=== PATIENT | female | born 1950 | race Caucasian/White ===

== ENCOUNTER 2022-05-31 06:44 | Inpatient (IN) ==
--- NOTE | 2022-05-21 08:14 | Anesthesiology Consultation ---
Date of Service May 21, 2022 Assessment & Plan (1) Encounter for pre-operative examination: Chart Review Chart Review: Acceptable Risk for Surgery and Patient NOT seen in Pre Admission Testing -COVID screening: Per PAT nursing assessment on 05/21/22. No known COVID-19 positive contacts or current COVID-19 related symptoms. Travel screen negative. Patient vaccinated for Covid. At surgeon discretion if preop Covid testing being done. History Surgery Operation Date: 05/31/22 08:50 Proposed Procedures p Bilateral Breast Mastectomy with Bilateral Sentinal Lymph Node Biopsy - Israel Bojorquez MD, FACS Height/Weight Height: 5 ft 2 in Weight: 90.718 kg Allergies Allergy/AdvReac Type Severity Reaction Status Date / Time Penicillins Allergy Hives Verified 05/21/22 07:35 Medications Home Medications Medication Instructions Recorded Confirmed Last Taken calcium carb,cit ER 600 mg-vit D3 2 tab PO QPM 03/17/18 05/21/22 10/24/18 21:00 12.5 mcg (500 unit) tablet,ext.rel (Citracal-D3 Slow Release) docusate sodium 100 mg capsule 300 mg PO HS 03/17/18 05/21/22 10/24/18 21:00 (Colace) multivitamin 1 tab PO QPM 03/17/18 05/21/22 10/24/18 21:00 aspirin 81 mg tablet,delayed 81 mg PO HS 10/11/18 05/21/22 10/23/18 21:00 release (Ecotrin Low Strength) cetirizine 10 mg tablet (Zyrtec) 10 mg PO HS 10/11/18 05/21/22 10/24/18 21:00 cholecalciferol (vitamin D3) 50 2,000 unit PO QPM 10/11/18 05/21/22 10/24/18 21:00 mcg (2,000 unit) capsule (Vitamin D3) fluticasone propionate 50 1 spray intranasal DAILY PRN 03/19/19 05/21/22 Unknown mcg/actuation nasal Congestion spray,suspension (Flonase Allergy Relief) omega 1-cnh-njj-fish oil 300 1 cap PO HS 05/04/22 05/21/22 Unknown mg-1,000 mg capsule,delayed release (Fish Oil) allopurinol 100 mg tablet 100 mg PO HS 05/21/22 05/21/22 Unknown amitriptyline 50 mg tablet 50 mg PO HS 05/21/22 05/21/22 Unknown atenolol 50 mg tablet 50 mg PO HS 05/21/22 05/21/22 Unknown hydrochlorothiazide 25 mg tablet 25 mg PO HS 05/21/22 05/21/22 Unknown Past Medical History Medical History (Updated 05/21/22 @ 08:09 by Latia Chambers PA-C) Borderline high cholesterol Breast cancer, right Stage 1 cancer Fibromyalgia Gout History of COVID-24 Sep 2021 > not hospitalized > very mild Hypertension Osteoarthritis Seasonal allergies Past Family History Family History Sister Breast cancer Father Myocardial infarction Grandfather (Maternal) Prostate cancer Uncle Prostate cancer Mother Hypertension Brother Cancer of kidney Other No family history of adverse response to anesthesia Denies family history of Ovarian cancer Colorectal cancer Past Surgical History Surgical History H/O nasal polypectomy History of total right knee replacement (TKR) History of vocal cord polypectomy 40 yrs ago Hx of section x2 Hx of cholecystectomy Hx of colonoscopy Hx of tooth extraction Social History Smoking Status: Never smoker Do You Dip or Chew Tobacco: No Hx Alcohol Use: Yes Alcohol type: beer and wine alcohol intake frequency: a few times a month Hx Substance Use: No substance use type: does not use Lab Results Anesthesia Preop Results Results Anesthesia Widget: WBC 8.58 K/ul (4.8-10.8) 05/13/22 Hgb 14.0 g/dl (12.0-16.0) 05/13/22 Hct 42.2 % (34.1-44.9) 05/13/22 Plt 318 K/uL (130-400) 05/13/22 Na 140 mmol/L (136-145) 05/13/22 K 3.8 mmol/L (3.5-5.1) 05/13/22 Cl 103 mmol/L (98-107) 05/13/22 CO2 31 mmol/L (21-32) 05/13/22 BUN 21 mg/dl (6-23) 05/13/22 Creat 0.81 mg/dl (0.6-1.2) 05/13/22 Glucose Level 91 mg/dl (70-99(Fasting)) 05/13/22 HA1c 5.8 % (4.5-5.6) H 05/13/22 Testing Electrocardiogram Date: 04/23/22 Findings: + NSR @ (66bpm ) and + no change from (Mar 21, 2018 per cardio ) Low voltage QRS
[~2022-05-31 06:44] MED LIST: CLINDA 900 MG **Premixed Bag IV SCH; LR 15ML/HR IV SCH
[2022-05-31] MEDS ORDERED: MIDAZOLAM HCL 1 MG/ML 2ML VIAL ONE (08:52)
[2022-05-31] MEDS ORDERED: DEXAMETHASONE SOD INJ 4 MG/ML VIAL ONE (08:52)
[2022-05-31] MEDS ORDERED: LIDOCAINE 2% MPF LOCAL 5 ML VIAL INFIL ONE (08:52)
[2022-05-31] MEDS ORDERED: fentaNYL citrate 100 MCG/2 ML VIAL ONE ×2 (08:52→12:22)
[2022-05-31] MEDS ORDERED: ONDANSETRON INJ 2 MG/ML 2 ML VIAL ONE (08:52)
[2022-05-31] MEDS ORDERED: ROCURONIUM BROMIDE 10 MG/ML 5 ML VIAL IV ONE ×4 (08:52→12:23)
[2022-05-31] MEDS ORDERED: PROPOFOL IV EMULSION 10 MG/ML 20 ML VIAL IV ONE ×2 (08:52→12:23)
[2022-05-31] MEDS ORDERED: GLYCOPYRROLATE 0.2 MG/ML VIAL ONE (08:52)
[2022-05-31] MEDS ORDERED: NEOSTIGMINE METHYLSULFATE 1 MG/ML 10ML VIAL ONE (08:52)
--- NOTE | 2022-05-31 09:25 | Nuclear Medicine Report ---
LYMPHOSCINTIGRAPHY, RIGHT BREAST CLINICAL HISTORY: Right breast cancer. PROCEDURE: Using standard sterile technique, 4 intradermal and one deep injection of 0.489 mCi of Lym phoseek was placed in the right periareolar breast. The patient tolerated the procedure well. There w ere no immediate complications. The patient was subsequently transported to the surgical suite. No im aging was obtained at the referring physician's request. IMPRESSION: Injection of 0.489 mCi of Lymphoseek in the right periareolar breast. ACT 112: Negative or not required by law. Electronically signed by: North Fuentes M.D. 05/31/2022 9:24 AM
--- NOTE | 2022-05-31 09:26 | Nuclear Medicine Report ---
LYMPHOSCINTIGRAPHY, LEFT BREAST CLINICAL HISTORY: Right breast cancer. PROCEDURE: Using standard sterile technique, 4 intradermal and one deep injection of 0.541 mCi of Lym phoseek was placed in the left periareolar breast. The patient tolerated the procedure well. There we re no immediate complications. The patient was subsequently transported to the surgical suite. No obey ging was obtained at the referring physician's request. IMPRESSION: Injection of 0.541 mCi of Lymphoseek in the left breast. ACT 112: Negative or not required by law. Electronically signed by: North Fuentes M.D. 05/31/2022 9:24 AM
[2022-05-31] MEDS ORDERED: ONDANSETRON INJ 2 MG/ML 2 ML VIAL IV PRN ×2 (09:37→15:07)
[2022-05-31] MEDS ORDERED: LABETALOL HCL IV 5 MG/ML 20ML IV PRN (09:37)
[2022-05-31] MEDS ORDERED: PROMETHAZINE HCL 6.25 MG in SODIUM CHLORIDE 0.9% 50 ML IV PRN (09:37)
[2022-05-31] MEDS ORDERED: KETOROLAC 30 MG/ML VIAL IV PRN (09:37)
[2022-05-31] MEDS ORDERED: ATROPINE SULFATE 0.1 MG/ML 10ML SYR IV PRN (09:37)
[2022-05-31] MEDS ORDERED: fentaNYL citrate 100 MCG/2 ML VIAL IV PRN (09:37)
[2022-05-31] MEDS ORDERED: BUPIVACAINE 0.5 % 5 MG/1 ML MPF 30ML VIAL ONE ×2 (10:02→11:50)
[2022-05-31] MEDS ORDERED: METHYLENE BLUE 0.5% 10 ML VIAL ONE (10:02)
--- NOTE | 2022-05-31 10:10 | History & Physical Bridge Note ---
Date of Service May 31, 2022 History & Physical Bridge Note I have examined the patient, reviewed the History & Physical and in the interval since the performance of the History & Physical I have noted the following changes of clinical significance: no changes noted
--- NOTE | 2022-05-31 13:00 | Post Operative Brief Note ---
PG Immediate Post Op with CF Date of Surgery May 31, 2022 Pre & Post Diagnosis Operation Date: 05/31/22 09:50 Pre-Op Diagnosis: Right Breast Cancer, BRCA2 Gene Mutation Positive Post-Op Diagnosis: Right Breast Cancer, BRCA2 Gene Mutation Positive I identified the patient and participated in the time-out.: Yes Procedure Operation Date: 05/31/22 09:50 Actual Procedures p Bilateral Breast Mastectomy with Bilateral [place] Lymph Node Biopsy(Bilateral) - Israel Bojorquez MD, FACS Surgeon Israel Bojorquez MD, FACS Chief Drafter Nika Mccoy Estimated Blood Loss 20 Findings Consistent with Post-Op Diagnosis Bilateral sentinel lymph nodes and breast tissue Specimens Specimen Description: A. Left Arg[place] Lymph Nodes B. Left Breast, Silk Suture Lateral C. Right [place] Lymph Nodes D. Right Breast, Silk Suture Lateral Drains Ok-Salazar Drain (15fr x2)
[2022-05-31] MEDS ORDERED: ACETAMINOPHEN 1,000 MG/100 ML VIAL IV ONE (13:01)
--- NOTE | 2022-05-31 13:42 | Hospitalist Consultation ---
Date of Consultation May 31, 2022 Assessment & Plan (1) BRCA2 gene mutation positive: Bilateral mastectomy, BRCA2+ R nodules - s/p mastectomy due to family history of BRCA2 gene and 2 nodules in the right breast which tested positive for stage I breast cancer. Surgical management, pain control, DVT prophylaxis per primary team Doing well, drains in place with sanguinous output Gout Continue allopurinol 100 mg p.o. nightly Fibromyalgia Continue amitriptyline 50 mg p.o. nightly Acute pain control per primary team. Reasonable for multimodal pain control starting with Tylenol, continuing amitriptyline above, and breakthrough oxycodone every 4 hours while awake Hypertension Continue atenolol 50 mg p.o. nightly May resume hydrochlorothiazide 25 mg p.o. nightly tonight, or tomorrow if low normal blood pressure Continue low-sodium diet Pain currently well controlled with Tylenol, oxycodone as needed. Continue DVT prophylaxis: Per primary team Disposition: Medical surgical Diet: Tolerating regular diet at time of assessment (2) FHx: factor V Leiden mutation: (3) HTN (hypertension): (4) Hypertension: (5) Gout: (6) Breast cancer, right: History of Present Illness Attending Physician: Israel Bojorquez MD, [facility] History of Present Illness Lexy De Jesus 71yo female with past medical history of BRCA2 gene mutation negative breast cancer, fibromyalgia, gout, hypertension, osteoarthritis who presented for scheduled bilateral breast mastectomy with sentinel lymph node biopsy with Dr. Bojorquez on 05/31/2022. Estimated blood loss 20 cc, no acute concerns per signout we have been consulted for postoperative management of medical comorbidities. Preoperatively with hemoglobin 14.0, white blood cell 8.5, sodium normal, potassium normal, creatinine is less than 1 at baseline and 0.81 preoperatively. Lexy is seen at the bedside postoperatively. She is seen with her daughter present. She reports that she feels well, has some pain at her surgical site in her chest otherwise does not have pain. She is well oriented and answers questions appropriately. She reports she has hypertension controlled with atenolol, HCTZ although notes it was her idea to take the HCTZ for weight loss many years ago but now does continue to use it for blood pressure. Has not taken this in the week preceding her surgery. Has taken the atenolol daily including today. Has a history of fibromyalgia for which she takes amitriptyline which works well for her. She had a mastectomy due to family history of BRCA2 gene and 2 nodules in the right breast which tested positive for stage I breast cancer. She elected to have bilateral mastectomy. 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 She denies history of CA, strokes, stents, and heart failure. She takes aspirin for primary prophylaxis which she last took 1 week ago. She is hungry and would like a lozenge due to a slightly scratchy throat, otherwise no questions/concerns at bedside. Allergies Allergy/AdvReac Type Severity Reaction Status Date / Time Penicillins Allergy Hives Verified 05/31/22 06:34 Home Medications Medication Instructions Recorded Confirmed Type calcium carb,cit ER 600 mg-vit D3 2 tab PO QPM 03/17/18 05/31/22 History 12.5 mcg (500 unit) tablet,ext.rel (Citracal-D3 Slow Release) docusate sodium 100 mg capsule 300 mg PO HS 03/17/18 05/31/22 History (Colace) multivitamin 1 tab PO QPM 03/17/18 05/31/22 History aspirin 81 mg tablet,delayed 81 mg PO HS 10/11/18 05/31/22 History release (Ecotrin Low Strength) cetirizine 10 mg tablet (Zyrtec) 10 mg PO HS 10/11/18 05/31/22 History cholecalciferol (vitamin D3) 50 2,000 unit PO QPM 10/11/18 05/31/22 History mcg (2,000 unit) capsule (Vitamin D3) fluticasone propionate 50 1 spray intranasal DAILY PRN 03/19/19 05/31/22 History mcg/actuation nasal Congestion spray,suspension (Flonase Allergy Relief) omega 9-kuv-mtm-fish oil 300 1 cap PO HS 05/04/22 05/31/22 History mg-1,000 mg capsule,delayed release (Fish Oil) allopurinol 100 mg tablet 100 mg PO HS 05/21/22 05/31/22 History amitriptyline 50 mg tablet 50 mg PO HS 05/21/22 05/31/22 History atenolol 50 mg tablet 50 mg PO HS 05/21/22 05/31/22 History hydrochlorothiazide 25 mg tablet 25 mg PO HS 05/21/22 05/31/22 History Patient History Medical History Borderline high cholesterol Breast cancer, right Stage 1 cancer Fibromyalgia Gout History of COVID-24 Sep 2021 > not hospitalized > very mild Hypertension Osteoarthritis Seasonal allergies Surgical History H/O nasal polypectomy History of total right knee replacement (TKR) History of vocal cord polypectomy 40 yrs ago Hx of section x2 Hx of cholecystectomy Hx of colonoscopy Hx of tooth extraction Family History Sister Breast cancer Father Myocardial infarction Grandfather (Maternal) Prostate cancer Uncle Prostate cancer Mother Hypertension Brother Cancer of kidney Other No family history of adverse response to anesthesia Denies family history of Ovarian cancer Colorectal cancer Social History Smoking Status: Never smoker Second Hand Exposure: No (work environment); Do You Dip or Chew Tobacco: No; Tobacco Cessation Education Requested by Patient: No Hx Alcohol Use: Yes Alcohol type: beer and wine Alcohol Intake Frequency: 2-4 x/Month Hx Substance Use: No Preferred Language: Czech Communication Ability: Effective Hearing Ability: Use of Hearing Aid 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 Beliefs That Will Affect Care: None marital status: Current Living Situation: Spouse current occupational status: 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 How many Children do You have: 2 Other Information That Helps Us Care for You: No Feels Safe at Home: Yes Safety Concerns: Feels Safe At This Time Childhood Exposure to Second-Hand Smoke: Yes caffeine: Yes during the past year weight has: increased > 10 lbs Dental Care, Regularly: Yes Physical Activity Frequency: Daily Seatbelt Use: always Sunscreen Use: Yes Assistive Devices: Contacts, Denture - Upper, Denture - Lower and Glasses Assistive Devices Comment: metal implants on bottom of mouth for upcoming bottom denture placement Review of Systems Review of Systems: All systems reviewed & are unremarkable except as noted in HPI & below Physical Exam Physical Exam: General: A&Ox3. NAD. Cooperative. HEENT: Atraumatic, normocephalic. Vision/hearing grossly intact Chest: Postsurgical dressings intact C/D/I. BAM drain right and BAM drain left both intact draining sanguinous material. Pulm: CTAB A&P. -wheezes, -rales, -rhonchi. Symmetrical chest rise. No increased work of breathing. No respiratory distress. Cardiac: RRR, -mrg. Radial pulses intact and symmetrical. Abdominal: Nontender, nondistended, soft. BS present. Extremities: Warm, dry, no edema. Sensation soft touch in hands and feet intact without asymmetry. Hyperbaric Technician strength intact and able to wiggle toes bilaterally Results & Data Results & Data ([facility]) Vital Signs (Past 12 Hours) Vital Signs Temp Pulse Pulse Resp BP Pulse Ox O2 Del Method 05/31/22 13:17 36.4 C L 80 18 155/92 H 97 Oxymask 05/31/22 06:58 36.9 C 72 18 150/84 H 96 Room Air O2 Flow Rate 05/31/22 13:17 5 05/31/22 06:58 PG Care Time/CCT Total # of Minutes Spent Total Time Spent with Patient: Total time spent is greater than 50% in coordination of care (as documented) at patient's floor/unit and/or counseling patient: Coding Level of Care Code INP/OBS CONSULT LVL 3, 45 MIN Diagnoses BRCA2 gene mutation positive Z15.01; Z15.09 FHx: factor V Leiden mutation Z83.2 HTN (hypertension) I10 Hypertension I10 Gout M10.9 Breast cancer, right C50.911
--- NOTE | 2022-05-31 13:56 | Anesthesiology Progress Note ---
Date of Service May 31, 2022 Anesthesia Post Procedure Vital Signs Vital Signs: Temp Pulse Pulse Resp BP Pulse Ox O2 Del Method 05/31/22 13:35 62 7 L 124/85 99 Oxymask 05/31/22 13:45 60 13 153/84 H 97 Oxymask 05/31/22 13:25 58 L 9 L 127/74 98 Oxymask 05/31/22 13:17 36.4 C L 80 18 155/92 H 97 Oxymask 05/31/22 06:58 36.9 C 72 18 150/84 H 96 Room Air O2 Flow Rate 05/31/22 13:35 3 05/31/22 13:45 3 05/31/22 13:25 4 05/31/22 13:17 5 05/31/22 06:58 Transfer of Care Handoff Completed per policy Notes Mental Status: alert / awake / arousable Patient Amnestic to Procedure: Yes Nausea / Vomiting: adequately controlled Pain: adequately controlled Airway Patency, RR, SpO2: stable & adequate BP & HR: stable & adequate Hydration State: stable & adequate Anesthetic Complications: no major complications apparent
[2022-05-31] MEDS ORDERED: KETAMINE 50 MG/5 ML SYRINGE ONE (14:35)
[2022-05-31] MEDS ORDERED: HYDROmorphone INJ 0.5 MG/0.5 ML SYR IV PRN (15:07)
[2022-05-31] MEDS ORDERED: ACETAMINOPHEN 325 MG TAB PO PRN (15:07)
[2022-05-31] MEDS ORDERED: LACTATED RINGER'S 1,000 ML IV SCH (15:07)
[2022-05-31] MEDS ORDERED: oxyCODONE HCL IR 5 MG TAB (IMMEDIATE RELEASE) PO PRN (15:07)
--- NOTE | 2022-05-31 19:19 | Operative Report (OR) ---
DATE OF OPERATION: 05/31/2022. NAME OF OPERATION: Bilateral mastectomy with bilateral sentinel lymph node biopsy. PREOPERATIVE DIAGNOSIS: Right breast cancer. POSTOPERATIVE DIAGNOSIS: Right breast cancer. STAFF SURGEON:. Dr. Bojorquez. FIELD AUDITOR: Halie Mccoy. ANESTHESIA: General. DESCRIPTION OF PROCEDURE: The patient was brought in the operating room and placed on the operating table in supine position. Her bilateral chest were prepped and draped in the usual fashion as well a s her axilla. Her arms were extended onto an arm board. The breast cancer was in the right breast. The left breast was approached first. We used 0.5% plain Marcaine for all incisions. Incision was made in the left axilla using the Neoprobe identifying sentinel lymph nodes, which were sent for rout ine pathology. The deep tissue was reapproximated using 2-0 plain suture, then the skin reapproximat ed using 4-0 nylon suture. An elliptical incision was made around the left breast nipple areolar com plex from medial to lateral and then the breast tissue was dissected away from the subcutaneous tissu e superior and inferior constructing a chest wall skin flaps. Breast tissue was taken off the pectora lis major muscle and then the breast was marked with a long silk suture lateral. The 15 round Jackso n-Salazar drain placed into the wound, secured at the skin using 3-0 nylon suture. The subcutaneous ti ssue was reapproximated using 3-0 Vicryl suture. Then, the skin reapproximated using subcuticular 4- 0 Monocryl with Steri-Strips. The right side was approached and the exact same operation performed w ith sentinel lymph node biopsy first and then the right mastectomy second with identical closure. Dr mcnair were applied and Johnnie wrap applied, and the patient was transferred to recovery room in stable condition. The patient tolerated the procedure well. My assistant professor of criminal justice helped me with prepping and drap ing the mastectomy, sentinel lymph node biopsy and closure of the wounds. Job ID: [id number]
[2022-05-31] MEDS: DOCUSATE SODIUM/SENNA 50/8.6MG TAB PO SCH (20:57)
[2022-05-31] MEDS ORDERED: hydroCHLOROthiazide 25 MG TAB PO SCH (21:00)
[2022-05-31] MEDS ORDERED: AMITRIPTYLINE HCL 50 MG TAB PO SCH (21:00)
[2022-05-31] MEDS ORDERED: allopurinoL 100 MG TAB PO SCH (21:00)
[2022-05-31] MEDS ORDERED: ATENOLOL 50 MG TABLET PO SCH (21:00)
[2022-05-31] MEDS: oxyCODONE HCL IR 5 MG TAB (IMMEDIATE RELEASE) PO PRN (22:56)
[2022-06-01] MEDS: oxyCODONE HCL IR 5 MG TAB (IMMEDIATE RELEASE) PO PRN (05:06)
[2022-06-01] MEDS ORDERED: COUGH DROP (SUGAR FREE) LOZ 24 LOZ/1 BOX BUCCAL ONE (06:25)
--- NOTE | 2022-06-01 06:48 | Discharge Summary (DS) ---
DATE OF ADMISSION: 05/31/2022. DATE OF DISCHARGE: 06/01/2022. NAME OF OPERATION: Bilateral mastectomy with bilateral sentinel lymph node biopsy. PREOPERATIVE DIAGNOSIS: Right breast cancer. POSTOPERATIVE DIAGNOSIS: Right breast cancer. STAFF SURGEON: Israel Bojorquez MD. HISTORY OF PRESENT ILLNESS: The patient is a 71-year-old female with biopsy-proven right breast canc er, which is breast cancer associated with a BRCA2 gene. The patient was brought into the hospital f or bilateral mastectomy. She was taken to the operating room on 05/31/2022, where she underwent bila teral mastectomy with bilateral sentinel lymph node biopsy, which she tolerated very well. She has d one well overnight. [place] stable for discharge home today to be followed in the surgical clinic. Job ID: [id number]
[2022-06-01] MEDS: DOCUSATE SODIUM/SENNA 50/8.6MG TAB PO SCH (07:37)
== END 2022-06-01 10:31 | disposition home or self-care (01) | DRG 581 ==
LOC: ASU 06:44 → 3N 13:40

== ENCOUNTER 2023-07-29 07:53 | Observation (INO) ==
--- NOTE | 2023-07-13 13:33 | PAT Medication Instructions ---
Medication Instructions Date of Service July 13, 2023 Home Medications Medication Instructions Recorded ibuprofen 600 mg tablet 600 mg PO TID PRN pain #20 tabs 08/23/22 allopurinol 100 mg tablet 200 mg (2 x 100 mg) PO HS #180 tabs 02/21/23 amitriptyline 50 mg tablet 50 mg PO HS #90 tabs 02/21/23 atenolol 50 mg tablet 50 mg PO HS #90 tabs 02/21/23 hydrochlorothiazide 25 mg tablet 25 mg PO QAM #90 tabs 02/21/23 benzonatate 100 mg capsule 100 mg PO TID PRN cough #30 caps 05/24/23 docusate sodium 100 mg capsule (Colace) 300 mg PO HS multivitamin 1 tab PO QPM aspirin 81 mg tablet,delayed release (Ecotrin Low Strength) 81 mg PO QAM cetirizine 10 mg tablet (Zyrtec) 10 mg PO QAM cholecalciferol (vitamin D3) 50 mcg (2,000 unit) capsule (Vitamin D3) 2,000 unit PO QPM fluticasone propionate 50 mcg/actuation nasal spray,suspension (Flonase Allergy Relief) 1 spray intranasal DAILY PRN omega 3-rko-ziq-fish oil 300 mg-1,000 mg capsule,delayed release (Fish Oil) 1 cap PO HS calcium carbonate 600 mg calcium (1,500 mg) tablet (Calcium) 600 mg PO BID vit C 250 mg-vit E 90 mg-zinc 40 mg-copper 1 rd-wzeurz-xxyeln capsule (PreserVision AREDS-2) 1 tab PO BID ibuprofen 600 mg tablet 600 mg PO TID PRN anastrozole [Arimidex] 1 dose PO QAM allopurinol 100 mg tablet 200 mg (2 x 100 mg) PO HS amitriptyline 50 mg tablet 50 mg PO HS atenolol 50 mg tablet 50 mg PO HS hydrochlorothiazide 25 mg tablet 25 mg PO QAM benzonatate 100 mg capsule 100 mg PO TID PRN anastrozole 1 mg tablet (Arimidex) 1 mg PO QAM Continue as directed fluticasone propionate 50 mcg/actuation nasal spray,suspension (Flonase Allergy Relief) 1 spray intranasal DAILY PRN(if needed) ASK your surgeon for instructions ibuprofen 600 mg tablet 600 mg PO TID PRN ASK your prescriber and surgeon aspirin 81 mg tablet,delayed release (Ecotrin Low Strength) 81 mg PO QAM anastrozole 1 mg tablet (Arimidex) 1 mg PO QAM STOP taking 2 weeks before surgery (or as soon as possible if surgery is within 2 weeks) omega 2-fvu-vnx-fish oil 300 mg-1,000 mg capsule,delayed release (Fish Oil) 1 cap PO HS vit C 250 mg-vit E 90 mg-zinc 40 mg-copper 1 wl-wwsavh-fcztdy capsule (PreserVision AREDS-2) 1 tab PO BID DO NOT take the morning of surgery cetirizine 10 mg tablet (Zyrtec) 10 mg PO QAM calcium carbonate 600 mg calcium (1,500 mg) tablet (Calcium) 600 mg PO BID hydrochlorothiazide 25 mg tablet 25 mg PO QAM benzonatate 100 mg capsule 100 mg PO TID PRN Take morning of surgery With a small sip of water, OTHERWISE NOTHING TO EAT OR DRINK AFTER MIDNIGHT: Take evening before surgery docusate sodium 100 mg capsule (Colace) 300 mg PO HS multivitamin 1 tab PO QPM cholecalciferol (vitamin D3) 50 mcg (2,000 unit) capsule (Vitamin D3) 2,000 unit PO QPM calcium carbonate 600 mg calcium (1,500 mg) tablet (Calcium) 600 mg PO BID allopurinol 100 mg tablet 200 mg (2 x 100 mg) PO HS amitriptyline 50 mg tablet 50 mg PO HS atenolol 50 mg tablet 50 mg PO HS benzonatate 100 mg capsule 100 mg PO TID PRN(if needed) Other Notes If you have any questions please call us at [phone] or [phone] or [phone] or [phone]
--- NOTE | 2023-07-20 13:25 | Anesthesiology Consultation ---
Date of Service July 20, 2023 Assessment & Plan (1) Encounter for pre-operative examination: - Infectious disease screening: Per assessment on 07/20/23: No known infectious disease contacts or current infectious disease symptoms. Patient was Covid positive 05/09/23 (Home test)- cough, congestion, laryngitis > symptoms resolved except residual, lingering mild laryngitis. DOS 07/29/23. Pt can proceed as scheduled without additional preop Covid testing or additional Covid contact precautions per protocol. - Outpatient joint assessment: Pt currently scheduled for inpatient pathway. If surgeon requests review for outpatient joint pathway, patient is an acceptable candidate for outpatient joint program from anesthesia standpoint pending surgeon's office assessment that patient is motivated, has good support and completes [facility] Day [facility] Program preop requirements. Chart Review Chart Review: Acceptable Risk for Surgery and Patient seen in Pre Admission Testing Teaching & Discussion Pre-Anesthesia Teaching/Discussion Notes: Instructed NPO after midnight before surgery,except medications with 15 cc of water. Medication instructions provided according to the PAT guidelines. History Surgery Operation Date: 07/29/23 08:00 Proposed Procedures p Left Total Knee Arthroplasty - Reece Kent DO Height/Weight Height: 5 ft 2 in Weight: 83.5 kg Allergies Allergy/AdvReac Type Severity Reaction Status Date / Time Penicillins Allergy Unknown Hives Verified 07/08/23 13:22 Medications Home Medications Medication Instructions Recorded Confirmed Last Taken docusate sodium 100 mg capsule 300 mg PO HS 03/17/18 07/08/23 08/22/22 20:30 (Colace) multivitamin 1 tab PO QPM 03/17/18 07/08/23 08/22/22 20:30 aspirin 81 mg tablet,delayed 81 mg PO QAM 10/11/18 07/08/23 08/20/22 20:00 release (Ecotrin Low Strength) cetirizine 10 mg tablet (Zyrtec) 10 mg PO QAM 10/11/18 07/08/23 08/22/22 08:00 cholecalciferol (vitamin D3) 50 2,000 unit PO QPM 10/11/18 07/08/23 08/22/22 20:30 mcg (2,000 unit) capsule (Vitamin D3) fluticasone propionate 50 1 spray intranasal DAILY PRN 03/19/19 07/08/23 08/22/22 20:30 mcg/actuation nasal Congestion spray,suspension (Flonase Allergy Relief) omega 3-hjt-blj-fish oil 300 1 cap PO HS 05/04/22 07/08/23 08/11/22 20:00 mg-1,000 mg capsule,delayed release (Fish Oil) calcium carbonate 600 mg calcium 600 mg PO BID 08/12/22 07/08/23 08/22/22 20:30 (1,500 mg) tablet (Calcium) vit C 250 mg-vit E 90 mg-zinc 40 1 tab PO BID 08/12/22 07/08/23 08/22/22 20:30 mg-copper 1 sr-howrmp-uqsgyn capsule (PreserVision AREDS-2) ibuprofen 600 mg tablet 600 mg PO TID PRN pain #20 tabs 08/23/22 07/08/23 Unknown anastrozole [Arimidex] 1 dose PO QAM 09/06/22 07/08/23 Unknown allopurinol 100 mg tablet 200 mg (2 x 100 mg) PO HS #180 tabs 02/21/23 07/08/23 Unknown amitriptyline 50 mg tablet 50 mg PO HS #90 tabs 02/21/23 07/08/23 Unknown atenolol 50 mg tablet 50 mg PO HS #90 tabs 02/21/23 07/08/23 Unknown hydrochlorothiazide 25 mg tablet 25 mg PO QAM #90 tabs 02/21/23 07/08/23 Unknown benzonatate 100 mg capsule 100 mg PO TID PRN cough #30 caps 05/24/23 06/21/23 Unknown anastrozole 1 mg tablet (Arimidex) 1 mg PO QAM 07/08/23 07/08/23 Unknown Past Medical History Medical History Borderline high cholesterol Breast cancer, right Stage 1 cancer s/p mastectomy (05/2022) Fibromyalgia Gout Remote History of COVID-19 09/2021- "very mild" 05/09/23 (Home test)- cough, congestion, laryngitis > reports symptoms resolved except lingering, mild laryngitis Hypertension Osteoarthritis Seasonal allergies Exercise / Class Metabolic Activity II 4-5 Yardwork/Stairs/Walk up hill Past Family History Family History Sister Breast cancer Father Myocardial infarction Grandfather (Maternal) Prostate cancer Uncle Prostate cancer Mother Hypertension Brother Cancer of kidney Other Family history of diabetes mellitus in brother No family history of adverse response to anesthesia Denies family history of Ovarian cancer Colorectal cancer Past Surgical History Surgical History H/O bilateral mastectomy Bilateral mastectomy with bilateral sentinel lymph node biopsy (05/31/22): Grade view 1, Glidescope#4, ETT 7.0 (elective glidescope x1 attempt, atraumatic) at [facility] Denies limb restriction. H/O bilateral oophorectomy Robotic Assisted Laparoscopic bilateral salpingo-oopheretomy, and Cystoscopy (08/23/22): Grade view 1, MAC#3, ETT 7.5 at [facility] H/O nasal polypectomy History of total right knee replacement (TKR) History of vocal cord polypectomy 40 years ago Hx of section x2 Hx of cholecystectomy Hx of colonoscopy Hx of tooth extraction Past Anesthesia History No Hx of Anesthesia Complications and No Family Hx of Anesthesia Complications History of PONV No Hx of PONV and No Hx of Motion Sickness Social History Smoking Status: Never smoker Do You Dip or Chew Tobacco: No Hx Alcohol Use: Yes Alcohol type: beer and wine alcohol intake frequency: holidays/special occasions only Hx Substance Use: No substance use type: does not use Review of Systems Patient denies chest pain, shortness of breath, dyspnea on exertion, fever, chills, cough, wheezing, palpitations. Physical Exam Vital Signs BP 113/73 P 63 TEMP 98.3 SP02 96%RA RESP 18 Physical Full cervical extension range of motion. Full TMJ range of motion. TMD > 3.5 finger breaths Mallampati Score 3 Dentition: upper partial, lower denture Lungs: clear throughout to auscultation Cardiac: regular rate and rhythm, no murmurs noted Spine: normal Carotid arteries: negative bruit Extremities: no LE edema Lab Results Anesthesia Preop Results Results Anesthesia Widget: WBC 7.74 K/ul (4.8-10.8) 07/20/23 Hgb 14.8 g/dl (12.0-16.0) 07/20/23 Hct 45.3 % (37.0-47.0) 07/20/23 Plt 337 K/uL (130-400) 07/20/23 Na 140 mmol/L (136-145) 07/20/23 K 4.0 mmol/L (3.5-5.1) 07/20/23 Cl 104 mmol/L (98-107) 07/20/23 CO2 30 mmol/L (21-32) 07/20/23 BUN 21 mg/dl (6-23) 07/20/23 Creat 0.87 mg/dl (0.6-1.2) 07/20/23 Glucose Level 94 mg/dl (70-99(Fasting)) 07/20/23 PT 10.9 Seconds (9.0-12.0) 07/20/23 PTT 24 Seconds (21-31) 07/20/23 INR 1.0 (0.9-1.1) 07/20/23 Blood Type B Positive 07/20/23 Antibody Screen NEGATIVE 07/20/23 Testing Electrocardiogram Date: 07/20/23 NSR at 69bpm. LAD. Low voltage QRS. Compared to 04/23/2022, QRS axis shifted left per accounts specialist comparison. Chest X-Ray Date: 07/20/23 FINDINGS: Cardiac mediastinal and hilar silhouettes are within normal limits. No pneumothorax, pleural effusion or airspace consolidation. Hyperinflation with diaphragmatic flattening. Bones appear grossly intact. Degenerative changes of the shoulders and spine. Cholecystectomy. IMPRESSION: No acute process.
[~2023-07-29 07:53] MED LIST changes: +BUPIVACAINE 0.5 % 5 MG/1 ML PF 10ML VIAL ONE; -CLINDA 900 MG **Premixed Bag IV SCH; -LR 15ML/HR IV SCH; +ROPIVACAINE 0.5% 5 MG/ML 30 ML VIAL ONE
[2023-07-29] MEDS ORDERED: MIDAZOLAM HCL 1 MG/ML 2ML VIAL ONE (08:26)
[2023-07-29] MEDS ORDERED: KETAMINE HCL 10MG/ML SYR ONE (08:27)
[2023-07-29] MEDS: ACETAMINOPHEN 500 MG TAB PO SCH ×2 (08:55→15:02)
[2023-07-29] MEDS: GABAPENTIN 300 MG CAP PO SCH (08:55)
[2023-07-29] MEDS: FAMOTIDINE 20 MG TAB PO SCH (08:56)
[2023-07-29] MEDS: dexAMETHasone**PF** 10 MG/ML VIAL IV SCH (08:56)
[2023-07-29] MEDS: LR 500ML BOLUS, THEN 15ML/HR IV SCH (08:56)
[2023-07-29] MEDS: LR 60ML/HR IV SCH (08:56)
--- NOTE | 2023-07-29 09:10 | History & Physical Bridge Note ---
Date of Service July 29, 2023 History & Physical Bridge Note I have examined the patient, reviewed the History & Physical and in the interval since the performance of the History & Physical I have noted the following changes of clinical significance: no changes noted
[2023-07-29] MEDS ORDERED: ePHEDrine sulfate 50 MG/ML AMP IV PRN (09:17)
[2023-07-29] MEDS ORDERED: DROPERIDOL 5 MG/2 ML VIAL IV PRN (09:17)
[2023-07-29] MEDS ORDERED: fentaNYL citrate PF 100 MCG/2 ML VIAL IV PRN (09:17)
[2023-07-29] MEDS ORDERED: ATROPINE SULFATE 0.1 MG/ML 10ML SYR IV PRN (09:17)
[2023-07-29] MEDS: TRANEXAMIC ACID 1,000 MG **IV Pre-op IV SCH (09:41)
[2023-07-29] MEDS: ceFAZolin 2000MG 2,000 MG/15 ML SYR IV SCH (09:58)
[2023-07-29] MEDS: ORTHO JOINT ANESTHETIC ONE (10:04)
[2023-07-29] MEDS ORDERED: LIDOCAINE 2% 2 ML VIAL/AMP(20MG/ML) INFIL ONE (10:06)
[2023-07-29] MEDS ORDERED: PROPOFOL IV EMULSION 10 MG/ML 20 ML VIAL IV ONE (10:06)
[2023-07-29] MEDS ORDERED: GLYCOPYRROLATE 0.2 MG/ML VIAL ONE (10:06)
[2023-07-29] MEDS ORDERED: ONDANSETRON INJ 2 MG/ML 2 ML VIAL ONE (10:06)
[2023-07-29] MEDS: ROPIV 0.5% 246mg, Ketorolac 30mg, EPINEPHrine 0.5mg in NSS INFIL SCH (10:34)
[2023-07-29] MEDS ORDERED: ePHEDrine sulfate 50 MG/5 ML SYR ONE (10:35)
[2023-07-29] MEDS ORDERED: PHENYLEPHRINE 100MCG/ML 10ML SYR IV ONE (10:56)
--- NOTE | 2023-07-29 11:04 | Operative Report ---
PG Post Operative Report Pre & Post Diagnosis Operation Date: 07/29/23 10:00 Pre-Op Diagnosis: Left Knee Degenerative Joint Disease Post-Op Diagnosis: Left Knee Degenerative Joint Disease I identified the patient and participated in the time-out.: Yes Procedure Operation Date: 07/29/23 10:00 Actual Procedures p Left Total Knee Arthroplasty, Cemented(Left) - Reece Kent DO Surgeon Reece Kent DO Anesthesiology Physician Chapincito Prakash PA-C Estimated Blood Loss 30 Findings Consistent with Post-Op Diagnosis Specimens Left femoral and tibial bone Description of Procedure Implants used: I used a Nile Persona total knee arthroplasty system with a size 7 narrow femur, D tibia, 28 oval patella, and a size 11 medial congruent polyethylene bearing. All components were cemented in place with Biomet cement. Lexy arrived [facility] for the above procedure. She was seen in the preoperative holding area and the operative extremity was identified and signed. She was given a preoperative antibiotic, TXA, a spinal anesthetic and an adductor nerve block. She was taken back to the operating room and laid on the table in supine position. She was given basic sedation. The operative knee was then prepped and draped in sterile fashion. A timeout was done, and the patient and the operative extremity was properly identified. A midline incision was made directly over the patella. Dissection was taken down to the extensor mechanism. A subvastus arthrotomy was used. The medial retinaculum was released and the fat pad was mostly excised. The knee was flexed and the ACL, PCL, and meniscus were removed. A drill was sent down the center of the femoral canal followed by an intramedullary moises. Off that moises a distal femoral cutting block was placed. 9 mm was resected off the distal femur at 5 of valgus. A posterior referencing AP sizing guide was then placed on the distal femur. The femur measured to be a size 7. 2 drill holes were placed in 3 of external rotation. A 4-in-1 cutting block was then impacted into place. Anterior, posterior, and chamfer cuts were then made. The proximal tibia was then exposed. An external tibial alignment guide was placed. A tibial cut guide was then anchored in place and the proximal tibia was then resected. The posterior aspect of the knee was then opened up and any additional meniscus fragments and osteophytes were removed. The tibia measured to be a size D. The tibial plate was then placed in the appropriate rotation and the tibia was drilled and punched. Trial components were then placed. I used a size 11 medial congruent polyethylene insert. The knee was brought through a full range of motion and felt to be stable. The peg holes for the femoral component were then drilled. The patella was then everted and 9 mm was resected off the posterior aspect of the patella. The patella measured to be a size 28 oval. 3 peg holes were then drilled. A trial patella was placed. The knee was once again brought through a full range of motion and felt to be stable. Trial components were then removed. The surrounding soft tissues were injected with 100 cc of an orthopedic pain control cocktail. All components were then cemented into place with Biomet cement. The final polyethylene insert was then snapped into place. Once cement was dry the tourniquet was deflated. Hemostasis was obtained. A dilute betadyne lavage was then done for 3 minutes. The joint was then irrigated with normal saline solution. The subvastus art hrotomy was then closed with #1 Vicryl suture. The skin was closed with 2-0 Vicryl, 3-0V lock suture, and jagjit. A soft compressive dressing was placed. She was then transferred to a hospital bed and taken to the postanesthesia care unit in stable condition. She tolerated the procedure well. Chapincito Prakash PA-C, was present for the entire procedure. He was critical for patient positioning, prepping, draping, retraction exposure, wound closure and application of sterile dressing. I attest to the content of the Intraoperative Record and any orders documented therein. Any exceptions are noted below.
--- NOTE | 2023-07-29 12:18 | XRay Report ---
XR knee LT 1 or 2V routine CLINICAL HISTORY: Postoperative evaluation. COMPARISON: Left knee radiographs March 29, 2023. FINDINGS: Alignment of the total left knee arthroplasty is anatomic. There is no periprosthetic frac ture or unexpected radiopaque foreign body. There are skin jagjit. IMPRESSION: Expected findings following total left knee arthroplasty. ACT 112: Negative or not required by law. Electronically signed by: Lion Almeida M.D. 07/29/2023 12:16 PM
--- NOTE | 2023-07-29 12:31 | Anesthesiology Progress Note ---
Date of Service July 29, 2023 Anesthesia Post Procedure Vital Signs Vital Signs: Temp Pulse Pulse Resp BP Pulse Ox O2 Del Method 07/29/23 12:15 57 L 12 110/66 94 Room Air 07/29/23 12:05 97.5 F L 61 13 111/68 96 Room Air 07/29/23 11:55 62 16 113/66 95 Room Air 07/29/23 11:45 61 12 107/65 96 Room Air 07/29/23 11:35 64 13 111/65 100 Oxymask 07/29/23 11:25 96.8 F L 76 12 106/64 99 Oxymask 07/29/23 08:40 97.7 F 65 18 148/92 H 97 Room Air O2 Flow Rate 07/29/23 12:15 07/29/23 12:05 07/29/23 11:55 07/29/23 11:45 07/29/23 11:35 4 07/29/23 11:25 6 07/29/23 08:40 Pain Intensity Left Knee: Pain Intensity: 1 Transfer of Care Handoff Completed per policy Notes Mental Status: alert / awake / arousable and participated in evaluation Patient Amnestic to Procedure: Yes Nausea / Vomiting: adequately controlled Pain: adequately controlled Airway Patency, RR, SpO2: stable & adequate BP & HR: stable & adequate Hydration State: stable & adequate Neuraxial Anesthesia: was administered and sensory block is resolving Anesthetic Complications: no major complications apparent and Pt Satisfied with anesthetic care
[2023-07-29] MEDS ORDERED: METOCLOPRAMIDE HCL INJ 5 MG/ML 2 ML VIAL IV PRN (12:37)
[2023-07-29] MEDS ORDERED: NALOXONE HCL 0.4 MG/1 ML VIAL/CARP IV PRN (12:37)
[2023-07-29] MEDS ORDERED: bisacodyL 10 MG SUPP PR PRN (12:37)
[2023-07-29] MEDS ORDERED: oxyCODONE HCL IR 5 MG TAB (IMMEDIATE RELEASE) PO PRN (12:37)
[2023-07-29] MEDS ORDERED: HYDROmorphone INJ 0.5 MG/0.5 ML SYR IV PRN (12:37)
[2023-07-29] MEDS ORDERED: ONDANSETRON INJ 2 MG/ML 2 ML VIAL IV PRN (12:37)
[2023-07-29] MEDS ORDERED: traMADol HCL 50 MG TABLET PO PRN (12:37)
[2023-07-29] MEDS ORDERED: MAGNESIUM HYDROXIDE SUSP 30 ML UDC PO PRN (12:37)
[2023-07-29] MEDS: SODIUM CHLORIDE 0.9% 1,000 ML IV SCH (12:45)
[2023-07-29] MEDS: TRANEXAMIC ACID 1,000 MG **IV Intra-op IV SCH (12:56)
[2023-07-29] MEDS: KETOROLAC TROMETHAMINE 15 MG/ML VIAL IV SCH (15:02)
[2023-07-29] MEDS: ceFAZolin 1000MG 1,000 MG/7.5 ML SYR IV SCH (18:16)
[2023-07-29] MEDS: AMITRIPTYLINE HCL 50 MG TAB PO SCH (20:51)
[2023-07-29] MEDS: SENNA 8.6 MG TAB PO SCH (20:51)
[2023-07-29] MEDS: ASPIRIN 81 MG ECTAB PO SCH (20:51)
[2023-07-29] MEDS: DOCUSATE SODIUM 100 MG CAP PO SCH (20:51)
[2023-07-29] MEDS: allopurinoL 100 MG TAB PO SCH (20:52)
[2023-07-29] MEDS: ATENOLOL 50 MG TABLET PO SCH (20:52)
[2023-07-29] MEDS: CALCIUM CARBONATE 1250MG TAB PO SCH (20:52)
[2023-07-30] MEDS: hydroCHLOROthiazide 25 MG TAB PO SCH (07:44)
[2023-07-30] MEDS: ANASTROZOLE 1 MG TAB PO SCH (07:44)
[2023-07-30] MEDS: MULTIVITAMIN TAB PO SCH (07:44)
[2023-07-30] MEDS: dexAMETHasone 4 MG TAB PO SCH (07:44)
[2023-07-30] MEDS: CEROVITE ADV FORMULA TAB PO SCH (07:45)
--- NOTE | 2023-07-30 08:03 | Orthopedic Progress Note ---
Date of Service July 30, 2023 Assessment & Plan (1) Status post left knee replacement: Overall she is doing very well. She is not having much pain in the left knee. She will be seen by physical therapy today for ambulation and range of motion exercises. She is on aspirin for DVT prophylaxis. She can be discharged home later today. She will follow-up with orthopedics in 2 weeks. Brittanie Pugh was seen and examined at bedside this morning. Overall she is doing very well. She is not having much pain in the left knee. She has been up and ambulating to the bathroom. She has no complaints.. Review of Systems All systems reviewed & are unremarkable except as noted in HPI & below. Physical Exam On physical examination of the left knee, the dressing is clean and dry. Her leg is out full extension. She has active dorsiflexion plantarflexion of the left ankle.. Results & Data Results & Data Laboratory Results . Diagnostic Findings Postoperative x-rays of the left knee show the prosthesis to be in anatomic alignment without any evidence of fracture complication, or loosening.. PG Care Time/CCT Total # of Minutes Spent Total Time Spent with Patient: Total time spent is greater than 50% in coordination of care (as documented) at patient's floor/unit and/or counseling patient: Coding Level of Care Code 24660 Post Operative Follow-Up Diagnoses Status post left knee replacement Z96.652
--- NOTE | 2023-07-30 08:04 | Discharge Summary ---
Date of Service July 30, 2023 Principal Diagnosis Same as "Discharge Diagnosis" noted below under Discharge Instructions. Discharge Exam On physical examination of the left knee, the dressing is clean and dry. Her leg is out full extension. She has active dorsiflexion plantarflexion of the left ankle.. Discharge Data Procedures Performed Operation Date: 07/29/23 10:00 Actual Procedures p Left Total Knee Arthroplasty, Cemented(Left) - Reece Kent DO Ordered Studies 07/29/23 05:00 US - OR guided needle placemen Routine Hospital Course (1) Status post left knee replacement: On July 29, 2023 Lexy arrived at [facility] and underwent a left knee replacement without complication. She had a spinal anesthetic. Postoperatively she was started on aspirin for DVT prophylaxis and transferred to the general orthopedic floors. Her hospital course was uneventful. On postop day #1, her vital signs were stable and her pain was well-controlled. She was able to participate well with physical therapy doing ambulation and range of motion exercises. She was then discharged home. She will follow-up with orthopedics in 2 weeks. PG Care Time/CCT Total # of Minutes Spent Total Time Spent with Patient: Total time spent is greater than 50% in coordination of care (as documented) at patient's floor/unit and/or counseling patient: Discharge Plan Discharge Items Patient Disposition: Home - Self-Care Reason For Visit: Left Knee Degenerative Joint Disease Discharge Diagnosis: Left knee replacement Activity: Per Instructions section Non-emergency contact: Surgeon Call non-emergency contact if: your wound has increased redness and your wound has increased drainage Follow-up/Referrals: Lolly Parker MD [Primary Care Provider] - Diet: Regular Addtl Attending Provider Instructions: Activity and Therapy Recommendations: * If you are using [facility] then therapy will be provided at your home until they feel you have accomplished all of your goals. * If you are using [facility] then Physical Therapy will be provided until they feel you are ready to start Outpatient Physical Therapy. * If you are not using home therapy then Outpatient Physical Therapy should start about 3-5 days from your day of surgery. Therapy will last about 6-10 weeks * It is important not to put a pillow under your knee when you are relaxing or sleeping. It is just as important to make sure you are getting your knee perfectly straight as it is to regain your knee bend. * You were shown a series of exercises in the hospital. Do these exercises three times each day including the exercises you were shown in physical therapy. * Get up and walk several times each day. For the first four weeks, try not to stand or walk for more than one hour at a time. If you do stand or walk for more than one hour, you will not hurt anything, but your leg will likely swell. * As you feel comfortable, you may change from the walker or crutches to a cane and then to independent walking. Medications: * Narcotic You will likely be sent home from the hospital with a prescription for the narcotic pain medication that worked best throughout your stay. * Cefadroxil -take the antibiotic twice a day for 10 days to help prevent infection. * Aspirin Most patients will be required to take Aspirin 81mg twice a day for 6 weeks after surgery. This is obtained clps-jnf-lruqirm and a prescription is not necessary. * Other medications may be prescribed for specific circumstances. If you have any questions, please call the office at . * Resume previous home medications unless otherwise instructed TEDs/Elastic Stockings: The white elastic stockings help limit swelling and prevent blood clots from forming in your legs.~ The more you wear them, the more they work. Wear them for six weeks. Dressing Care: The dressing can be changed after physical therapy on postop day #1. Daily dry dressing changes for a few days, especially if the incision is still draining some. If the incision is not draining then you may leave the jagjit open to air. If there is a little bit of drainage or if the jagjit are getting stuck on your clothing then cover the incision with a dry dressing. The jagjit will be removed at your 2 week follow-up appointment. Showering: You may shower 5 days from the day of surgery as long as the incision is no longer draining. You may shower with the jagjit exposed. Let soapy water run over the jagjit and pat them dry. Do not scrub or soak the incision. Things To Watch For: * Drainage from the incision site that occurs more than one week after your surgery. * Increased redness at the incision site. * Fever above 102 degrees Fahrenheit. * Unusual chest pain or shortness of breath. * Call [facility] at with any of the above problems Follow-Up Visit: Follow-up with Dr. Kent's PA (Reece Marcelino) 2-3 weeks after your day of surgery. He will remove your jagjit and answer any questions. If you have any additional questions or concerns, Dr Kent is usually in the office at the same time and will be available An appointment was probably scheduled when you signed-up for surgery in the office. If you have any questions call Office Instructions: More detailed instructions as well as Frequently Asked Questions were provided in a folder by our office when you signed-up for surgery. Please review these instructions when you get home. If you have any further questions or concerns, please feel free to call the office at [phone] Pending Studies at Discharge: No Stand-Alone Forms: My [facility] Medications and DC Order Prescriptions: New oxycodone 5 mg Tablet 5 mg PO Q4H PRN (Reason: pain) Qty: 20 0RF cefadroxil 500 mg capsule 500 mg PO BID 10 Days Qty: 20 0RF Continued allopurinol 100 mg tablet 200 mg PO HS Qty: 180 1RF Rx Instructions: TAKE 2 TABLETS BY MOUTH EVERY DAY hydrochlorothiazide 25 mg tablet 25 mg PO QAM Qty: 90 1RF Rx Instructions: TAKE 1 TABLET BY MOUTH EVERY DAY amitriptyline 50 mg tablet 50 mg PO HS Qty: 90 1RF atenolol 50 mg tablet 50 mg PO HS Qty: 90 1RF benzonatate 100 mg capsule 100 mg PO TID PRN (Reason: cough) Qty: 30 0RF omega 6-cnc-xdw-fish oil [Fish Oil] 300-1,000 mg capsule,delayed release(DR/EC) 1 cap PO HS anastrozole [Arimidex] 1 dose PO QAM multivitamin Tablet 1 tab PO QPM docusate sodium [Colace] 100 mg Capsule 300 mg PO HS cetirizine [Zyrtec] 10 mg Tablet 10 mg PO QAM cholecalciferol (vitamin D3) [Vitamin D3] 2,000 unit Capsule 2,000 unit PO QPM fluticasone propionate [Flonase Allergy Relief] 50 mcg/actuation spray,suspension 1 spray INTRANASAL DAILY PRN (Reason: Congestion) calcium carbonate [Calcium 600] 600 mg calcium (1,500 mg) Tablet 600 mg PO BID PreserVision AREDS-2 250-90-40-1 mg Capsule 1 tab PO BID ibuprofen 600 mg tablet 600 mg PO TID PRN (Reason: pain) Qty: 20 0RF anastrozole [Arimidex] 1 mg Tablet 1 mg PO QAM diphenhydramine-acetaminophen [Acetaminophen PM] 25-500 mg Tablet 2 tab PO HS melatonin 5 mg Tablet 5 mg PO HS Changed aspirin [Ecotrin Low Strength] 81 mg tablet,delayed release (DR/EC) 81 mg PO BID 42 Days Qty: 0 0RF Patient Comments: SOMETIMES MORNING Discharge Orders: Discharge Order (Routine); Ordered 07/30/23 Ordered By: Reece Kent Admission Data Admit Date/Time: 07/29/23 11:43 Attending Provider: Reece Kent Admit Provider: Reece Kent Primary Care Provider: Lolly Parker
== END 2023-07-30 11:32 | disposition home or self-care (01) ==
LOC: 3E 07:53 → ASU 07:53
DX: Z79.899 Other long term (current) drug therapy; Z85.3 Personal history of malignant neoplasm of breast; Z88.0 Allergy status to penicillin; M17.12 Unilateral primary osteoarthritis, left knee; Z79.82 Long term (current) use of aspirin; I10 Essential (primary) hypertension; M79.7 Fibromyalgia